=== PATIENT | male | born 1945 | race Two or more races ===

== ENCOUNTER 2017-03-04 11:27 | Inpatient (IN) | payer MEDICARE, OTHER ==
[2017-03-04] VITALS (35 sets, daily range): BP systolic 96–138; BP diastolic 58–90; PULSE 46–60; RESP 11–25; Ht 162.6 cm; Wt 88.0 kg
[~2017-03-04] VITALS: Ht 162.6 cm; Wt 88.0 kg
[2017-03-04] MEDS ORDERED: ISOS30TA5 PO (12:33)
[2017-03-04] MEDS ORDERED: ATOR40TA68 PO (12:33)
[2017-03-04] MEDS ORDERED: FAMO20TA18 PO (12:33)
[2017-03-04] MEDS ORDERED: ASPI81TA3 PO (12:33)
[2017-03-04] MEDS ORDERED: ZOLP5TAB7 PO (12:33)
[2017-03-04] MEDS ORDERED: ATEN100T PO (12:33)
--- NOTE | 2017-03-04 14:35 | CONS ---
Date/Time of Note Date/Time of Note DATE: 03/04/17 TIME: 14:26 Assessment/Plan Assessment/Plan Chief Complaint/Hosp Course Impression: NSTEMI- agree with C possible PCI. Patient/family contact Dr. Burciaga, requested transfer of care to our group. This was d/w Dr. Mancilla as well. Risks/benefits of procedure d/w patient who is aware and agrees to proceed. Will access L radial given absent R radial (? occlusion post cath in 2014). 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 Problems: Consultation Date/Type/Reason Admit Date/Time 03/04/2017 Date of Consultation: Mar 04, 2017 Type of Consultation: Cardiology Reason for Consultation NSTEMI Referring Provider: KIMBERLY MANCILLA Hx of Present Illness Mr. Patino is a 71 y.o. with h/o of HTN, HLD, previous NH s/p PCI to LAD 1997, 2014. Pt follows with Dr. Burciaga in clinic. States he was admitted to [facility] 2 days ago for sudden onset chest pain. Pt states had new onset mod-severe chest pain, mid chest in the am when waking up. felt it dizziness and blurred vision in l eye as well. pt states lasted 5 mins and resolved, but recurred. no n/v, sweating, radiation of pain, palp, dizziness, fainting. no change with activity. denies previous pain, has had pain prior with NH which was different he states. Pt evaluated at [facility], found to have severe elevation in bp, now controlled. pt states bp in general controlled. also noted to have small nstemi 0.1 -> 0.2. Pt now chest pain free. He has been transferred for LHC at [facility]. Otherwise denies pnd, orhtopnea, edema. no palp, dizziness, fainting. no recent illness. Constitutional: no complaints Eyes: no complaints ENT: no complaints Respiratory: no complaints Cardiovascular: chest pain Gastrointestinal: no complaints Genitourinary: no complaints Skin: no complaints Neurologic: dizziness Endocrine: no complaints Psychological: nl mood/affect, no complaints Immunologic: no complaints Past Medical History HTN HLD DM2 Obesity old NH/CAD - PCI LAD 1997, mLAD PCI 2014 lymphoma s/p chemo Past Surgical History Past Surgical Hx: angioplasty Family History Significant Family History: heart disease Social History Alcohol Use: none Smoking Status: Former smoker Drug Use: none Exam/Review of Systems Vital Signs Vitals Vital Signs Date Time Temp Pulse Resp B/P Pulse Ox O2 Delivery O2 Flow Rate FiO2 03/04/17 12:16 98.4 46 14 104/71 95 Room Air Exam Constitutional: alert, obese, oriented Psych: nl mood/affect, no complaints Head: atraumatic, normocephalic Eyes: nl conjunctiva ENMT: nl external ears & nose, nl lips & teeth, nl nasal mucosa & septum Neck: non-tender, supple, No jvd Respiratory: clear to auscultation, normal air movement Cardiovascular: nl pulses, regular rate and rhythm, No S3, No S4, No bruits, No irregular rhythm, No jugular venous distention ( JVD), No systolic murmur Gastrointestinal: non-tender, soft Musculoskeletal: nl extremities to inspection, nl gait and stance Extremities: other (absent R radial pulse, abnl reverse allens. L radial 2+ normal allnes), No edema Neurological: FIELD INVESTIGATOR II-XII intact, nl speech, nl strength Procedures Procedures OSH records reviewed CRISTIAN CARPENTER Mar 04, 2017 14:35
--- NOTE | 2017-03-04 14:35 | CONS ---
Date/Time of Note Date/Time of Note DATE: 03/04/17 TIME: 14:26 Assessment/Plan Assessment/Plan Chief Complaint/Hosp Course Impression: NSTEMI- agree with C possible PCI. Patient/family contact Dr. Burciaga, requested transfer of care to our group. This was d/w Dr. Mancilla as well. Risks/benefits of procedure d/w patient who is aware and agrees to proceed. Will access L radial given absent R radial (? occlusion post cath in 2014). 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 Problems: Consultation Date/Type/Reason Admit Date/Time 03/04/2017 Date of Consultation: Mar 04, 2017 Type of Consultation: Cardiology Reason for Consultation NSTEMI Referring Provider: KIMBERLY MANCILLA Hx of Present Illness Mr. Patino is a 71 y.o. with h/o of HTN, HLD, previous [place] s/p PCI to LAD 1997, 2014. Pt follows with Dr. Burciaga in clinic. States he was admitted to [facility] 2 days ago for sudden onset chest pain. Pt states had new onset mod-severe chest pain, mid chest in the am when waking up. felt it dizziness and blurred vision in l eye as well. pt states lasted 5 mins and resolved, but recurred. no n/v, sweating, radiation of pain, palp, dizziness, fainting. no change with activity. denies previous pain, has had pain prior with NE which was different he states. Pt evaluated at [facility], found to have severe elevation in bp, now controlled. pt states bp in general controlled. also noted to have small nstemi 0.1 -> 0.2. Pt now chest pain free. He has been transferred for LHC at [facility]. Otherwise denies pnd, orhtopnea, edema. no palp, dizziness, fainting. no recent illness. Constitutional: no complaints Eyes: no complaints ENT: no complaints Respiratory: no complaints Cardiovascular: chest pain Gastrointestinal: no complaints Genitourinary: no complaints Skin: no complaints Neurologic: dizziness Endocrine: no complaints Psychological: nl mood/affect, no complaints Immunologic: no complaints Past Medical History HTN HLD DM2 Obesity old NE/CAD - PCI LAD 1997, mLAD PCI 2014 lymphoma s/p chemo Past Surgical History Past Surgical Hx: angioplasty Family History Significant Family History: heart disease Social History Alcohol Use: none Smoking Status: Former smoker Drug Use: none Exam/Review of Systems Vital Signs Vitals Vital Signs Date Time Temp Pulse Resp B/P Pulse Ox O2 Delivery O2 Flow Rate FiO2 03/04/17 12:16 98.4 46 14 104/71 95 Room Air Exam Constitutional: alert, obese, oriented Psych: nl mood/affect, no complaints Head: atraumatic, normocephalic Eyes: nl conjunctiva ENMT: nl external ears & nose, nl lips & teeth, nl nasal mucosa & septum Neck: non-tender, supple, No jvd Respiratory: clear to auscultation, normal air movement Cardiovascular: nl pulses, regular rate and rhythm, No S3, No S4, No bruits, No irregular rhythm, No jugular venous distention ( JVD), No systolic murmur Gastrointestinal: non-tender, soft Musculoskeletal: nl extremities to inspection, nl gait and stance Extremities: other (absent R radial pulse, abnl reverse allens. L radial 2+ normal allnes), No edema Neurological: MOBILITY ENGINEER II-XII intact, nl speech, nl strength Procedures Procedures OSH records reviewed CRISTIAN CARPENTER Mar 04, 2017 14:35
--- NOTE | 2017-03-04 14:35 | CONS ---
Date/Time of Note Date/Time of Note DATE: 03/04/17 TIME: 14:26 Assessment/Plan Assessment/Plan Chief Complaint/Hosp Course Impression: NSTEMI- agree with C possible PCI. Patient/family contact Dr. Burciaga, requested transfer of care to our group. This was d/w Dr. Mancilla as well. Risks/benefits of procedure d/w patient who is aware and agrees to proceed. Will access L radial given absent R radial (? occlusion post cath in 2014). 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 Problems: Consultation Date/Type/Reason Admit Date/Time 03/04/2017 Date of Consultation: Mar 04, 2017 Type of Consultation: Cardiology Reason for Consultation NSTEMI Referring Provider: KIMBERLY MANCILLA Hx of Present Illness Mr. Patino is a 71 y.o. with h/o of HTN, HLD, previous [place] s/p PCI to LAD 1997, 2014. Pt follows with Dr. Burciaga in clinic. States he was admitted to [facility] 2 days ago for sudden onset chest pain. Pt states had new onset mod-severe chest pain, mid chest in the am when waking up. felt it dizziness and blurred vision in l eye as well. pt states lasted 5 mins and resolved, but recurred. no n/v, sweating, radiation of pain, palp, dizziness, fainting. no change with activity. denies previous pain, has had pain prior with [place] which was different he states. Pt evaluated at [facility], found to have severe elevation in bp, now controlled. pt states bp in general controlled. also noted to have small nstemi 0.1 -> 0.2. Pt now chest pain free. He has been transferred for LHC at [facility]. Otherwise denies pnd, orhtopnea, edema. no palp, dizziness, fainting. no recent illness. Constitutional: no complaints Eyes: no complaints ENT: no complaints Respiratory: no complaints Cardiovascular: chest pain Gastrointestinal: no complaints Genitourinary: no complaints Skin: no complaints Neurologic: dizziness Endocrine: no complaints Psychological: nl mood/affect, no complaints Immunologic: no complaints Past Medical History HTN HLD DM2 Obesity old [place]/CAD - PCI LAD 1997, mLAD PCI 2014 lymphoma s/p chemo Past Surgical History Past Surgical Hx: angioplasty Family History Significant Family History: heart disease Social History Alcohol Use: none Smoking Status: Former smoker Drug Use: none Exam/Review of Systems Vital Signs Vitals Vital Signs Date Time Temp Pulse Resp B/P Pulse Ox O2 Delivery O2 Flow Rate FiO2 03/04/17 12:16 98.4 46 14 104/71 95 Room Air Exam Constitutional: alert, obese, oriented Psych: nl mood/affect, no complaints Head: atraumatic, normocephalic Eyes: nl conjunctiva ENMT: nl external ears & nose, nl lips & teeth, nl nasal mucosa & septum Neck: non-tender, supple, No jvd Respiratory: clear to auscultation, normal air movement Cardiovascular: nl pulses, regular rate and rhythm, No S3, No S4, No bruits, No irregular rhythm, No jugular venous distention ( JVD), No systolic murmur Gastrointestinal: non-tender, soft Musculoskeletal: nl extremities to inspection, nl gait and stance Extremities: other (absent R radial pulse, abnl reverse allens. L radial 2+ normal allnes), No edema Neurological: PHYSICIAN IN PRIVATE PRACTICE II-XII intact, nl speech, nl strength Procedures Procedures OSH records reviewed CRISTIAN CARPENTER Mar 04, 2017 14:35
[2017-03-04] MEDS ORDERED: HEPARIN 1000 UNITS/ML 10 ML INJ ONE ×2 (15:05→15:06)
[2017-03-04] MEDS ORDERED: MIDAZOLAM 1 MG/ML 2 ML INJ ONE (15:05)
[2017-03-04] MEDS ORDERED: IODIXANOL LOCM 100 ML BTL ONE (15:05)
[2017-03-04] MEDS ORDERED: LIDOCAINE 1% (MDV) 20 ML INJ ONE (15:05)
[2017-03-04] MEDS ORDERED: FENTAnyl 50 MCG/ML VIAL ONE (15:06)
[2017-03-04] MEDS ORDERED: VERAPAMIL 5 MG INJ ONE (15:06)
[2017-03-04] MEDS ORDERED: SOD CHLORIDE 0.9% 500 ML ONE (15:06)
[2017-03-04] MEDS ORDERED: CLOPIDOGREL 300 MG TAB ONE ×2 (15:51→16:36)
[2017-03-04] MEDS ORDERED: IOHEXOL 350MG/ML 50 ML BTL ONE (15:51)
[2017-03-04] MEDS ORDERED: ONDANSETRON 4 MG INJ ONE (17:11)
[2017-03-04] MEDS ORDERED: EPTIFIBATIDE 10 ML ONE (17:12)
[2017-03-04] MEDS ORDERED: EPTIFIBATIDE 100 ML IV ONE (17:12)
[2017-03-04] MEDS ORDERED: SOD CHLORIDE 0.9% 1,000 ML IV SCH (17:15)
[2017-03-04] MEDS: EPTIFIBATIDE 100 ML IV SCH ×2 (17:27→20:00)
[2017-03-04] MEDS ORDERED: ACETAMINOPHEN 325 MG TAB PO PRN (17:30)
[2017-03-04] MEDS ORDERED: ZOLPIDEM 5 MG TAB PO PRN (17:30)
[2017-03-04] MEDS ORDERED: TICAGRELOR 90 MG TABLET PO ONE (17:30)
[2017-03-04] MEDS ORDERED: morphine 2 MG INJ IV PRN (17:30)
[2017-03-04] MEDS ORDERED: AL HYDROX/MG HYDROX/SIMETH 30 ML CUP PO PRN (17:30)
[2017-03-04] MEDS ORDERED: OXYCODONE/ACETAMINOPHEN (5/325) TAB PO PRN (17:30)
--- NOTE | 2017-03-04 17:30 | SIPON ---
Date/Time of Note Date/Time of Note DATE: 03/04/17 TIME: 17:25 Operative Report Preoperative Diagnosis NSTEMI Postoperative Diagnosis Severe CAD- Occlusion of mid LAD immediately after D1 branch Operation/Procedure Performed 1. Left Heart Catheterization 2. PCI of DYNAMOMETER TUNER of mid to distal LAD with VERO x 3 3. Administration of moderate sedation Findings: LVEDP: 15mmHg Coronary Anatomy: 1) LM - no significant disease 2) LAD- 100% occlusion of mid LAD at previous stent after large D1 artery. distal LAD fills via L-L collaterals 3) LCx- dominant vessel, no significant disease 4) RCA- non dominant vessel, small. no significant disease LV Gram: LVEF 45%, severe hypokinesis of mid to apical anterior wall. Impression: 1) 100% occlusion of previous LAD stent with new WMA on LV gram s/p PCI with VERO x 3 from distal to mid LAD 2) Mildly elevated LV filling pressures Recommendations: 1) aspirin 81 mg daily 2) Load with ticagelor 180mg po x 1 when in ICU then 90mg po bid 3) Integrillin Gtt overnight x 12 hrs given multiple layers of stent and small distal vessel 4) high dose statin 5) po nitrates 6) bb as tolerated Surgeon see signature line resident assistant cna n/a Anesthesia: moderate sedation Estimated blood loss: 50 - 100 ml's Transfusion Required none Specimen none Grafts/Implants none Complications none CRISTIAN CARPENTER Mar 04, 2017 17:30
--- NOTE | 2017-03-04 17:30 | SIPON ---
Date/Time of Note Date/Time of Note DATE: 03/04/17 TIME: 17:25 Operative Report Preoperative Diagnosis NSTEMI Postoperative Diagnosis Severe CAD- Occlusion of mid LAD immediately after D1 branch Operation/Procedure Performed 1. Left Heart Catheterization 2. PCI of MISSION PLANNER of mid to distal LAD with VERO x 3 3. Administration of moderate sedation Findings: LVEDP: 15mmHg Coronary Anatomy: 1) LM - no significant disease 2) LAD- 100% occlusion of mid LAD at previous stent after large D1 artery. distal LAD fills via L-L collaterals 3) LCx- dominant vessel, no significant disease 4) RCA- non dominant vessel, small. no significant disease LV Gram: LVEF 45%, severe hypokinesis of mid to apical anterior wall. Impression: 1) 100% occlusion of previous LAD stent with new WMA on LV gram s/p PCI with VERO x 3 from distal to mid LAD 2) Mildly elevated LV filling pressures Recommendations: 1) aspirin 81 mg daily 2) Load with ticagelor 180mg po x 1 when in ICU then 90mg po bid 3) Integrillin Gtt overnight x 12 hrs given multiple layers of stent and small distal vessel 4) high dose statin 5) po nitrates 6) bb as tolerated Surgeon see signature line front end assistant n/a Anesthesia: moderate sedation Estimated blood loss: 50 - 100 ml's Transfusion Required none Specimen none Grafts/Implants none Complications none CRISTIAN CARPENTER Mar 04, 2017 17:30
--- NOTE | 2017-03-04 17:30 | SIPON ---
Date/Time of Note Date/Time of Note DATE: 03/04/17 TIME: 17:25 Operative Report Preoperative Diagnosis NSTEMI Postoperative Diagnosis Severe CAD- Occlusion of mid LAD immediately after D1 branch Operation/Procedure Performed 1. Left Heart Catheterization 2. PCI of DRILL DOCTOR of mid to distal LAD with VERO x 3 3. Administration of moderate sedation Findings: LVEDP: 15mmHg Coronary Anatomy: 1) LM - no significant disease 2) LAD- 100% occlusion of mid LAD at previous stent after large D1 artery. distal LAD fills via L-L collaterals 3) LCx- dominant vessel, no significant disease 4) RCA- non dominant vessel, small. no significant disease LV Gram: LVEF 45%, severe hypokinesis of mid to apical anterior wall. Impression: 1) 100% occlusion of previous LAD stent with new WMA on LV gram s/p PCI with VERO x 3 from distal to mid LAD 2) Mildly elevated LV filling pressures Recommendations: 1) aspirin 81 mg daily 2) Load with ticagelor 180mg po x 1 when in ICU then 90mg po bid 3) Integrillin Gtt overnight x 12 hrs given multiple layers of stent and small distal vessel 4) high dose statin 5) po nitrates 6) bb as tolerated Surgeon see signature line assistant professor of theater n/a Anesthesia: moderate sedation Estimated blood loss: 50 - 100 ml's Transfusion Required none Specimen none Grafts/Implants none Complications none CRISTIAN CARPENTER Mar 04, 2017 17:30
[2017-03-04] MEDS ORDERED: ATORVASTATIN 80 MG TAB PO SCH (21:00)
[2017-03-04] MEDS: DOCUSATE SODIUM 100 MG CAP PO SCH (21:07)
[2017-03-04] MEDS: ONDANSETRON 4 MG INJ IV PRN (21:12)
[2017-03-04] MEDS: ISOSORBIDE DINITRATE 20 MG TAB PO SCH ×2 (21:13→21:20)
[2017-03-05] VITALS (25 sets, daily range): BP systolic 95–127; BP diastolic 44–87; PULSE 51–81; RESP 9–22
--- NOTE | 2017-03-05 06:35 | HP ---
Date/Time of Note Date/Time of Note DATE: 03/05/17 TIME: 06:29 Assessment/Plan VTE Prophylaxis VTE Prophylaxis Intervention: SCD's Lines/Catheters IV [facility]ter [facility] Peripheral IV Urinary Cath still in place: No Assessment/Plan Assessment/Plan ASSESSMENT 71-year-old male with a history of CAD status post PCI with stent, hypertension , dyslipidemia who was transferred from [facility] for NSTEMI, and now status post left heart cath with placement of stent PLAN Continue ICU monitoring Continue aspirin, Brilinta, nitro and statin. Patient is bradycardic and as such no [id number] Follow-up cardiology recs HPI/ROS Admit Date/Time Admit Date/Time 03/04/2017 Hx of Present Illness This is a 71-year-old male with a history of CAD status post PCI with stent, hypertension, dyslipidemia who was transferred from [facility] for NSTEMI. Patient has been having chest pain for the past few days. At [facility] his second troponin was slightly high around 0.2. Patient is now status post left heart cath with placement of stent. Currently is not complaining of chest pain or shortness of breath. ROS Eyes: no complaints ENT: no complaints Respiratory: no complaints Cardiovascular: chest pain Gastrointestinal: no complaints Genitourinary: no complaints Skin: no complaints Neurologic: dizziness Psychological: nl mood/affect, no complaints Immunologic: no complaints PMH/Family/Social Past Surgical History Past Surgical Hx: angioplasty Social History Alcohol Use: none Smoking Status: Former smoker Drug Use: none Exam/Review of Systems Vital Signs Vitals Vital Signs Date Time Temp Pulse Resp B/P Pulse Ox O2 Delivery O2 Flow Rate FiO2 03/05/17 05:59 58 03/05/17 05:00 13 102/57 99 Nasal Cannula 2.0 03/05/17 04:00 98.1 Intake and Output 03/04/17 03/04/17 03/05/17 15:00 23:00 07:00 Intake Total 635.84 ml 281.68 ml Output Total 350 ml 400 ml Balance 285.84 ml -118.32 ml Exam Constitutional: alert, oriented, well developed Head: atraumatic, normocephalic Eyes: EOMI, PERRL Respiratory: clear to auscultation, normal air movement Cardiovascular: other (Bradycardic with regular rhythm) Gastrointestinal: non-tender, soft Extremities: normal pulses Labs Result Diagram: 03/05/1743603/05/17436 Medications Medications Current Medications Miscellaneous Information (* Miscellaneous Pharmacy Order) Hold all Metformin ... ONCE XX ; Start 03/04/17 at 17:30; Stop 03/06/17 at 17:29 Aspirin (Halfprin) 81 mg DAILY PO ; Start 03/05/17 at 09:00 Ticagrelor (Brilinta) 90 mg BID PO ; Start 03/05/17 at 09:00 Isosorbide Dinitrate (Isordil) 10 mg TID PO Last administered on 03/04/17 21: 20; Admin Dose 10 MG; Start 03/04/17 at 21:00 Acetaminophen (Tylenol Tab) 650 mg Q4H PRN PO NON-CARDIAC PAIN LEVEL 1-3; Start 03/04/17 at 17:30 Oxycodone/ Acetaminophen (Percocet (5/ 325)) 1 tab Q4H PRN PO REPORTED NON- CARDIAC PAIN 4-7; Start 03/04/17 at 17:30 Morphine Sulfate (morphine) 1 mg Q1H PRN IV PAIN NOT RELIEVED BY OTHERS; Start 03/04/17 at 17:30 Al Hydrox/Mg Hydrox/Simethicone (Mag-Al Plus) 30 ml Q4H PRN PO GASTROINTESTINAL UPSET; Start 03/04/17 at 17:30 Ondansetron HCl (Zofran Inj) 4 mg Q4H PRN IV NAUSEA AND/OR VOMITING Last administered on 03/04/17 21:12; Admin Dose 4 MG; Start 03/04/17 at 17:30 Docusate Sodium (Colace) 100 mg BID PO Last administered on 03/04/17 21:07; Admin Dose 100 MG; Start 03/04/17 at 21:00 Atorvastatin Calcium (Lipitor) 80 mg DAILY@21 PO Last administered on 21:08; Admin Dose 80 MG; Start 03/04/17 at 21:00 HEMANT BARROSO MD Mar 05, 2017 06:35 HEMANT BARROSO MD Mar 05, 2017 06:35
[2017-03-05] MEDS: DOCUSATE SODIUM 100 MG CAP PO SCH (08:09)
[2017-03-05] MEDS: ISOSORBIDE DINITRATE 20 MG TAB PO SCH (08:09)
[2017-03-05] MEDS ORDERED: TICAGRELOR 90 MG TABLET PO SCH (09:00)
[2017-03-05] MEDS ORDERED: ASPIRIN (EC) 81 MG TAB PO SCH (09:00)
--- NOTE | 2017-03-05 10:17 | CONS ---
Date/Time of Note Date/Time of Note DATE: 03/05/17 TIME: 10:08 Assessment/Plan Assessment/Plan Chief Complaint/Hosp Course Impression: NSTEMI- s/p LHC had total occlusion of mid LAD stent after D1. Appears on LV gram to have new wma with hypokinesis of mid to apical anterior wall. Decision made to proceed with PCI. now s/p PCI of mid to distal LAD with VERO x 3 overlapping and covering previous placed stents. Pt did well overnight. - cont asa 81mg daily - cont ticagelor 90mg po bid - cont statin - ok to cont bb, switch to metop xl 25mg daily given cardiomyopathy. hold for HR < 50 - d/c nitrate given headaches HTN- controlled - d.c atenolol - start metop xl 25mg daily, hold for hr < 50 HLD- con tstatin Obesity- - cardiac rehab, diet/exercise post discharge. Problems: Consultation Date/Type/Reason Admit Date/Time Mar 04, 2017 at 17:24 Initial Consult Date 03/04/17 Type of Consultation: Cardiology Referring Provider: KIMBERLY MANCILLA 24 HR Interval Summary Free Text/Dictation no acute events overnight. states has mild headache, after taking nitrate. no change in vision, n/v, numbness/weakness. pt ambulating in room, no cp/sob. had bm, no blood in stool. no events on tele Detailed Summary Respiratory: no complaints Cardiovascular: no complaints Gastrointestinal: no complaints Exam/Review of Systems Vital Signs Vitals Vital Signs Date Time Temp Pulse Resp B/P Pulse Ox O2 Delivery O2 Flow Rate FiO2 03/05/17 08:00 Nasal Cannula 2.0 03/05/17 08:00 55 03/05/17 08:00 14 105/71 97 03/05/17 07:00 98.2 Intake and Output 03/04/17 03/04/17 03/05/17 15:00 23:00 07:00 Intake Total 635.84 ml 281.68 ml Output Total 350 ml 700 ml Balance 285.84 ml -418.32 ml Exam Constitutional: alert, oriented Psych: nl mood/affect, no complaints Head: normocephalic Eyes: EOMI, nl conjunctiva, nl lids ENMT: nl external ears & nose Neck: non-tender, supple, No jvd Respiratory: clear to auscultation, normal air movement Cardiovascular: nl pulses, regular rate and rhythm, No S3, No S4, No diastolic murmur, No edema, No irregular rhythm, No systolic murmur Gastrointestinal: non-tender, soft, No distended Musculoskeletal: other (2+ radial at L hand cath site, + small amount of bruising, hematoma. normal sensation, ROM of L hand.) Extremities: normal pulses Neurological: LOSS CONTROL ENGINEER II-XII intact, nl mental status, nl speech, nl strength Skin: nl turgor Results Result Diagram: 03/05/1743603/05/17436 Results 24 hrs Laboratory Tests Test 03/05/17 04:37 White Blood Count 6.3 Red Blood Count 4.76 Hemoglobin 14.6 Hematocrit 42.8 Mean Corpuscular Volume 89.9 Mean Corpuscular Hemoglobin 30.7 Mean Corpuscular Hemoglobin Concent 34.1 Red Cell Distribution Width 12.8 Platelet Count 122 L Mean Platelet Volume 10.2 Neutrophils % 78.8 H Lymphocytes % 11.2 L Monocytes % 8.8 Eosinophils % 0.3 Basophils % 0.3 Nucleated Red Blood Cells % 0.0 Neutrophils # 4.9 Lymphocytes # 0.7 L Monocytes # 0.6 Eosinophils # 0.0 Basophils # 0.0 Nucleated Red Blood Cells # 0.0 Prothrombin Time 13.0 Prothrombin Time Ratio 1.0 INR International Normalized Ratio 0.98 Sodium Level 140 Potassium Level 4.2 Chloride Level 107 Carbon Dioxide Level 26 Anion Gap 11 Blood Urea Nitrogen 12 Creatinine 0.76 Glucose Level 83 Calcium Level 8.8 Triglycerides Level 118 Cholesterol Level 167 LDL Cholesterol, Calculated 110 HDL Cholesterol 33 Cholesterol/HDL Ratio 5.0 Medications Medications Current Medications Miscellaneous Information (* Miscellaneous Pharmacy Order) Hold all Metformin ... ONCE XX ; Start 03/04/17 at 17:30; Stop 03/06/17 at 17:29 Aspirin (Halfprin) 81 mg DAILY PO Last administered on 03/05/17 08:08; Admin Dose 81 MG; Start 03/05/17 at 09:00 Ticagrelor (Brilinta) 90 mg BID PO Last administered on 03/05/17 08:11; Admin Dose 90 MG; Start 03/05/17 at 09:00 Isosorbide Dinitrate (Isordil) 10 mg TID PO Last administered on 03/05/17 08: 09; Admin Dose 10 MG; Start 03/04/17 at 21:00 Acetaminophen (Tylenol Tab) 650 mg Q4H PRN PO NON-CARDIAC PAIN LEVEL 1-3; Start 03/04/17 at 17:30 Oxycodone/ Acetaminophen (Percocet (5/ 325)) 1 tab Q4H PRN PO REPORTED NON- CARDIAC PAIN 4-7; Start 03/04/17 at 17:30 Morphine Sulfate (morphine) 1 mg Q1H PRN IV PAIN NOT RELIEVED BY OTHERS; Start 03/04/17 at 17:30 Al Hydrox/Mg Hydrox/Simethicone (Mag-Al Plus) 30 ml Q4H PRN PO GASTROINTESTINAL UPSET; Start 03/04/17 at 17:30 Ondansetron HCl (Zofran Inj) 4 mg Q4H PRN IV NAUSEA AND/OR VOMITING Last administered on 03/04/17 21:12; Admin Dose 4 MG; Start 03/04/17 at 17:30 Docusate Sodium (Colace) 100 mg BID PO Last administered on 03/05/17 08:09; Admin Dose 100 MG; Start 03/04/17 at 21:00 Atorvastatin Calcium (Lipitor) 80 mg DAILY@21 PO Last administered on 21:08; Admin Dose 80 MG; Start 03/04/17 at 21:00 Procedures Procedures tele reviewed: no events, nsr with meenu 40s-60s CRISTIAN CARPENTER Mar 05, 2017 10:17
--- NOTE | 2017-03-05 10:24 | RADRPT ---
Vent Rate: 54 bpm RR Interval: 0 msec MD Interval: 184 msec QRS Duration: 98 msec QT Interval: 442 msec QTC Interval: 419 msec P-R-T [place]: 41 - -23 - 14 degrees Sinus bradycardia Cannot rule out Anterior infarct , age undetermined Abnormal ECG Electronically Signed By: Rolan Slaughter [id number]
--- NOTE | 2017-03-05 10:24 | RADRPT ---
Vent Rate: 54 bpm RR Interval: 0 msec TN Interval: 184 msec QRS Duration: 98 msec QT Interval: 442 msec QTC Interval: 419 msec P-R-T [place]: 41 - -23 - 14 degrees Sinus bradycardia Cannot rule out Anterior infarct , age undetermined Abnormal ECG Electronically Signed By: Rolan Slaughter [id number]
--- NOTE | 2017-03-05 10:24 | RADRPT ---
Vent Rate: 54 bpm RR Interval: 0 msec [place] Interval: 184 msec QRS Duration: 98 msec QT Interval: 442 msec QTC Interval: 419 msec P-R-T [place]: 41 - -23 - 14 degrees Sinus bradycardia Cannot rule out Anterior infarct , age undetermined Abnormal ECG Electronically Signed By: Rolan Slaughter [id number]
--- NOTE | 2017-03-05 10:25 | RADRPT ---
Vent Rate: 61 bpm RR Interval: 0 msec [place] Interval: 168 msec QRS Duration: 94 msec QT Interval: 418 msec QTC Interval: 420 msec P-R-T [place]: 63 - -15 - 47 degrees Normal sinus rhythm Septal infarct , age undetermined Abnormal ECG Electronically Signed By: Rolan Slaughter [id number]
--- NOTE | 2017-03-05 10:25 | RADRPT ---
Vent Rate: 61 bpm RR Interval: 0 msec [place] Interval: 168 msec QRS Duration: 94 msec QT Interval: 418 msec QTC Interval: 420 msec P-R-T [place]: 63 - -15 - 47 degrees Normal sinus rhythm Septal infarct , age undetermined Abnormal ECG Electronically Signed By: Rolan Slaughter [id number]
--- NOTE | 2017-03-05 10:25 | RADRPT ---
Vent Rate: 61 bpm RR Interval: 0 msec [place] Interval: 168 msec QRS Duration: 94 msec QT Interval: 418 msec QTC Interval: 420 msec P-R-T [place]: 63 - -15 - 47 degrees Normal sinus rhythm Septal infarct , age undetermined Abnormal ECG Electronically Signed By: Rolan Slaughter [id number]
[2017-03-05] MEDS ORDERED: METOPROLOL (XL) 25 MG TAB PO SCH (10:30)
[2017-03-05] MEDS ORDERED: METO-335 PO (11:12)
[2017-03-05] MEDS ORDERED: TICA90TA PO (11:12)
[2017-03-05] MEDS ORDERED: ATOR80TA75 PO (11:12)
[2017-03-05] MEDS ORDERED: ASPI-664 PO (11:12)
[2017-03-05] MEDS: ONDANSETRON 4 MG INJ IV PRN (11:14)
--- NOTE | 2017-03-05 11:20 | PDOCDIS ---
Discharge Instructions DIAGNOSIS Discharge Diagnosis 1. Non-ST elevated myocardial infarction. Noted with total occlusion of mid LAD 2. Hypertension 3. Dyspnea 4. Obesity 5. Coronary artery disease CONDITION Patient Condition: Stable HOME CARE INSTRUCTIONS: Diet Instructions: Low Fat /Cholesterol FOLLOW UP/APPOINTMENTS Follow-up Plan 1. Follow up with Dr. Rolan Slaughter in one week SANTO HUFFMAN Mar 05, 2017 11:20
--- NOTE | 2017-03-05 13:24 | OPR ---
DATE OF OPERATION: 03/04/2017 PROCEDURE PERFORMED: 1. Left heart catheterization. 2. Percutaneous coronary intervention of DECORATING INSTRUCTOR of the mid left anterior descending. 3. Administration of moderate sedation. PREOPERATIVE DIAGNOSES: 1. Non-ST elevation myocardial infarction. 2. Coronary artery disease. POSTOPERATIVE DIAGNOSES: 1. Severe 1-vessel coronary artery disease. 2. Current total occlusion of the mid left anterior descending. MAPPING PILOT: Rolan Slaughter MD. PRIMARY BEE KEEPER: Suman Burciaga MD. PRIMARY CARE PHYSICIAN: Hector Meek MD. HISTORY: Mr. Patino is a pleasant 71-year-old man with a past medical history of coronary artery disease and previous [place], status post PCI in 1987, as well as 2014, to the LAD. The patient presente d to [facility] 2 days ago with sudden onset chest pain and elevated blood pressure. The patient noted to have a non-ST elevation [place] with an elevated troponin at 0.2. The patient was ther efore transferred to [facility] for left heart catheterization. Discussion was he ld between myself and the patient prior to cath. Explained risks and benefits of procedure. Patien t is agreeable to proceed. All questions were answered. PROCEDURE DESCRIPTION: The patient was brought to catheterization lab in stable condition. Left wr ist was prepped and draped in usual sterile fashion and anesthetized with 2% lidocaine solution. Un john ultrasonic guidance, access was obtained to the left radial artery and a 6-Belgian Terumo Slender sheath was placed without difficulty. Cineangiograms were then obtained using a TIG 4.0, 6-Belgian diagnostic catheter to engage the right coronary artery. Cineangiograms obtained in standard views. The catheter was then exchanged for a FL 3.5, 5-Belgian diagnostic catheter, was used to engage the left coronary and cineangiograms obtain ed. The FL catheter was withdrawn and exchanged for a 6-Belgian pigtail catheter, was advanced to th e left ventricle and pressures were obtained. Left ventriculography was then performed as well. At this point, the discussion was held between myself and patient's primary senior application programmer, Dr. Mily gregory as well as with patient. Given non-ST elevation myocardial infarction, new wall motion abnormal ity on LV gram, decision was made to attempt PCI of the DECORATING INSTRUCTOR of the mid LAD. It was unclear was how chronic this was versus acute/subacute. PCI DESCRIPTION: The patient loaded with aspirin as well as Plavix prior to PCI. Additional IV hep isa was given and ACT was checked and confirmed to be in therapeutic range. An XB 3.5 6-Belgian gabriel ding catheter was used to engage the left coronary. A 0.014 inch Runthrough coronary guidewire was advanced to the mid LAD at the area of occlusion. A 1.2 x 6 mm balloon was advanced over the Runthr ough wire for added support. The Runthrough wire was able to cross the proximal cap and was having difficulty traversing the mid LAD. A 300 cm 0.014 inch Fielder XT coronary wire was then advanced t o the mid LAD and was able to cross the proximal cap and advance to the distal LAD. Runthrough wire was removed as well as with the 1.2 balloon. A 130 cm Corsair microcatheter was then advanced over the Fielder XT wire to the distal LAD and distal injection was performed confirming position in the true lumen. The was Corsair was then removed and the 1.2 x 6 mm balloon was advanced to the mid LA D and serial inflations were performed from distal to mid LAD. Entry of flow was noted. The balloo n was removed and exchanged for a 2.0 x 12 mm balloon and angioplasty was performed from distal to m id LAD. Multiple lesions were identified and at this point decision was made to proceed with PCI. A 2.25 x 32 mm Synergy drug-eluting stent was advanced to the distal LAD and deployed. A 2.75 x 32 mm Synergy drug-eluting stent was then advanced to the distal/mid LAD and deployed proximal to the f irst stent in overlapping fashion. Stent balloon was removed. Overlap was post-dilated with the st ent balloon and the stent balloon was removed. A 3.0 x 12 mm Synergy drug-eluting stent was then ad vanced to the mid/proximal LAD and deployed at high pressure. Again, the overlap of the second and most proximal stent was post-dilated with stent balloon. The stent balloon was then removed. A 2.5 x 20 mm noncompliant balloon was then advanced to the distal LAD stent and used for post-dilation. A 3.25 x 20 mm noncompliant balloon was then used to post-dilate the second LAD stent as well as th e overlaps as well as the more proximal portion of the third LAD stent. Final angiograms were obtai talat showing good stent expansion apposition. There was brisk flow noted in the LAD stent, but remai talat MATHEW II/III type flow likely due to size mismatch between the stent and distal artery. Therefor e, Integrilin drip was started at this point. The patient denied any chest pain or shortness of kim ath. All wires and catheters removed. Intracoronary nitroglycerin was given. The patient did noti ce nausea and vomiting with the nitroglycerin. After was stopped patient denied any chest no n or further nausea. The patient given Zofran IV. All catheters and wires were removed. Hemostasi s was obtained with a TR band to the left wrist. ESTIMATED BLOOD LOSS: 100 mL. COMPLICATIONS: There were no complications. SPECIMENS OBTAINED: None. FINDINGS: HEMODYNAMICS. LVEDP is 15 mmHg. LV gram. EF 45% with severe hypokinesis of the mid to apical anterior wall. CORONARY ANATOMY: 1. Left main. Large vessel with mild disease, 10%. 2. Left anterior descending artery. This is a large sized vessel proximally. There is mild diseas e in the distal portion of the proximal LAD, 30% to 40%. There is a septal 1 artery, which is follo wed by a small size diagonal 1 artery. After this diagonal 1 artery, the LAD is completely occluded with MATHEW 0 flow. This appears to be at the proximal edge of two overlapping stents. The distal L AD fills weakly via left to left collaterals from the apical portion. 3. Left circumflex artery. This is a dominant artery. It is large in size. The proximal circumfl ex has mild diffuse disease, 30%. The mid to distal circumflex is without disease. There is an ave rage size left PDA artery, which is without disease. The OM2 branch is a large sized branch and has mild disease, 30% proximal portion, as well as 30% in the mid portion. There is a small superior b ranch with a proximal 60% lesion. The inferior branch is large and tortuous without significant dis ease. 4. Right coronary artery. This is a small nondominant branch. No significant disease. 5. Ramus intermedius branch. Average size long with a proximal 30% to 40% stenosis. PERCUTANEOUS CORONARY INTERVENTION LESION DESCRIPTION: 1. Mid LAD DECORATING INSTRUCTOR status post PCI with drug-eluting stent x3. 2. Preprocedure stenosis 100%, postprocedure stenosis is 0%. 3. MATHEW 0 flow pre, MATHEW II to III flow post. CONCLUSIONS: 1. Single vessel coronary artery disease with DECORATING INSTRUCTOR of the mid LAD, status post PCI with overall dexter ing drug-eluting stents x3. 2. Moderate decreased LV systolic function with new anterior wall motion abnormality. 3. Mildly elevated left ventricular filling pressures. RECOMMENDATIONS: 1. Aspirin 81 mg daily. 2. Given patient with multiple overlapping stents would switch him to Brilinta 90 mg p.o. b.i.d. 3. Integrilin drip overnight. 4. Continue statin. 5. Continue beta-raymundo as tolerated. 6. Continue nitrate if patient can tolerate. 7. Referral to cardiac rehab after discharge. Dictated By: ROLAN FRIAS/PRETTY Conf#: [id number] DID#: [id number]
--- NOTE | 2017-03-05 13:24 | OPR ---
DATE OF OPERATION: 03/04/2017 PROCEDURE PERFORMED: 1. Left heart catheterization. 2. Percutaneous coronary intervention of BRICK UNLOADER TENDER of the mid left anterior descending. 3. Administration of moderate sedation. PREOPERATIVE DIAGNOSES: 1. Non-ST elevation myocardial infarction. 2. Coronary artery disease. POSTOPERATIVE DIAGNOSES: 1. Severe 1-vessel coronary artery disease. 2. Current total occlusion of the mid left anterior descending. OPERATING ROOM SURGICAL TECHNICIAN: Rolan Slaughter MD. PRIMARY PIZZA BAKER: Suman Burciaga MD. PRIMARY CARE PHYSICIAN: Hector Meek MD. HISTORY: Mr. Patino is a pleasant 71-year-old man with a past medical history of coronary artery disease and previous [place], status post PCI in 1987, as well as 2014, to the LAD. The patient presente d to [facility] 2 days ago with sudden onset chest pain and elevated blood pressure. The patient noted to have a non-ST elevation [place] with an elevated troponin at 0.2. The patient was ther efore transferred to [facility] for left heart catheterization. Discussion was he ld between myself and the patient prior to cath. Explained risks and benefits of procedure. Patien t is agreeable to proceed. All questions were answered. PROCEDURE DESCRIPTION: The patient was brought to catheterization lab in stable condition. Left wr ist was prepped and draped in usual sterile fashion and anesthetized with 2% lidocaine solution. Un john ultrasonic guidance, access was obtained to the left radial artery and a 6-Cypriot Terumo Slender sheath was placed without difficulty. Cineangiograms were then obtained using a TIG 4.0, 6-Cypriot diagnostic catheter to engage the right coronary artery. Cineangiograms obtained in standard views. The catheter was then exchanged for a FL 3.5, 5-Cypriot diagnostic catheter, was used to engage the left coronary and cineangiograms obtain ed. The FL catheter was withdrawn and exchanged for a 6-Cypriot pigtail catheter, was advanced to th e left ventricle and pressures were obtained. Left ventriculography was then performed as well. At this point, the discussion was held between myself and patient's primary night club manager, Dr. Mily gregory as well as with patient. Given non-ST elevation myocardial infarction, new wall motion abnormal ity on LV gram, decision was made to attempt PCI of the BRICK UNLOADER TENDER of the mid LAD. It was unclear was how chronic this was versus acute/subacute. PCI DESCRIPTION: The patient loaded with aspirin as well as Plavix prior to PCI. Additional IV hep isa was given and ACT was checked and confirmed to be in therapeutic range. An XB 3.5 6-Cypriot gabriel ding catheter was used to engage the left coronary. A 0.014 inch Runthrough coronary guidewire was advanced to the mid LAD at the area of occlusion. A 1.2 x 6 mm balloon was advanced over the Runthr ough wire for added support. The Runthrough wire was able to cross the proximal cap and was having difficulty traversing the mid LAD. A 300 cm 0.014 inch Fielder XT coronary wire was then advanced t o the mid LAD and was able to cross the proximal cap and advance to the distal LAD. Runthrough wire was removed as well as with the 1.2 balloon. A 130 cm Corsair microcatheter was then advanced over the Fielder XT wire to the distal LAD and distal injection was performed confirming position in the true lumen. The was Corsair was then removed and the 1.2 x 6 mm balloon was advanced to the mid LA D and serial inflations were performed from distal to mid LAD. Entry of flow was noted. The balloo n was removed and exchanged for a 2.0 x 12 mm balloon and angioplasty was performed from distal to m id LAD. Multiple lesions were identified and at this point decision was made to proceed with PCI. A 2.25 x 32 mm Synergy drug-eluting stent was advanced to the distal LAD and deployed. A 2.75 x 32 mm Synergy drug-eluting stent was then advanced to the distal/mid LAD and deployed proximal to the f irst stent in overlapping fashion. Stent balloon was removed. Overlap was post-dilated with the st ent balloon and the stent balloon was removed. A 3.0 x 12 mm Synergy drug-eluting stent was then ad vanced to the mid/proximal LAD and deployed at high pressure. Again, the overlap of the second and most proximal stent was post-dilated with stent balloon. The stent balloon was then removed. A 2.5 x 20 mm noncompliant balloon was then advanced to the distal LAD stent and used for post-dilation. A 3.25 x 20 mm noncompliant balloon was then used to post-dilate the second LAD stent as well as th e overlaps as well as the more proximal portion of the third LAD stent. Final angiograms were obtai talat showing good stent expansion apposition. There was brisk flow noted in the LAD stent, but remai talat MATHEW II/III type flow likely due to size mismatch between the stent and distal artery. Therefor e, Integrilin drip was started at this point. The patient denied any chest pain or shortness of kim ath. All wires and catheters removed. Intracoronary nitroglycerin was given. The patient did noti ce nausea and vomiting with the nitroglycerin. After was stopped patient denied any chest no n or further nausea. The patient given Zofran IV. All catheters and wires were removed. Hemostasi s was obtained with a TR band to the left wrist. ESTIMATED BLOOD LOSS: 100 mL. COMPLICATIONS: There were no complications. SPECIMENS OBTAINED: None. FINDINGS: HEMODYNAMICS. LVEDP is 15 mmHg. LV gram. EF 45% with severe hypokinesis of the mid to apical anterior wall. CORONARY ANATOMY: 1. Left main. Large vessel with mild disease, 10%. 2. Left anterior descending artery. This is a large sized vessel proximally. There is mild diseas e in the distal portion of the proximal LAD, 30% to 40%. There is a septal 1 artery, which is follo wed by a small size diagonal 1 artery. After this diagonal 1 artery, the LAD is completely occluded with MATHEW 0 flow. This appears to be at the proximal edge of two overlapping stents. The distal L AD fills weakly via left to left collaterals from the apical portion. 3. Left circumflex artery. This is a dominant artery. It is large in size. The proximal circumfl ex has mild diffuse disease, 30%. The mid to distal circumflex is without disease. There is an ave rage size left PDA artery, which is without disease. The OM2 branch is a large sized branch and has mild disease, 30% proximal portion, as well as 30% in the mid portion. There is a small superior b ranch with a proximal 60% lesion. The inferior branch is large and tortuous without significant dis ease. 4. Right coronary artery. This is a small nondominant branch. No significant disease. 5. Ramus intermedius branch. Average size long with a proximal 30% to 40% stenosis. PERCUTANEOUS CORONARY INTERVENTION LESION DESCRIPTION: 1. Mid LAD BRICK UNLOADER TENDER status post PCI with drug-eluting stent x3. 2. Preprocedure stenosis 100%, postprocedure stenosis is 0%. 3. MATHEW 0 flow pre, MATHEW II to III flow post. CONCLUSIONS: 1. Single vessel coronary artery disease with BRICK UNLOADER TENDER of the mid LAD, status post PCI with overall dexter ing drug-eluting stents x3. 2. Moderate decreased LV systolic function with new anterior wall motion abnormality. 3. Mildly elevated left ventricular filling pressures. RECOMMENDATIONS: 1. Aspirin 81 mg daily. 2. Given patient with multiple overlapping stents would switch him to Brilinta 90 mg p.o. b.i.d. 3. Integrilin drip overnight. 4. Continue statin. 5. Continue beta-raymundo as tolerated. 6. Continue nitrate if patient can tolerate. 7. Referral to cardiac rehab after discharge. Dictated By: ROLAN FRIAS/PRETTY Conf#: [id number] DID#: [id number]
--- NOTE | 2017-03-05 13:24 | OPR ---
DATE OF OPERATION: 03/04/2017 PROCEDURE PERFORMED: 1. Left heart catheterization. 2. Percutaneous coronary intervention of MILK PASTEURIZER of the mid left anterior descending. 3. Administration of moderate sedation. PREOPERATIVE DIAGNOSES: 1. Non-ST elevation myocardial infarction. 2. Coronary artery disease. POSTOPERATIVE DIAGNOSES: 1. Severe 1-vessel coronary artery disease. 2. Current total occlusion of the mid left anterior descending. INDUSTRIAL REGISTERED NURSE: Rolan Slaughter MD. PRIMARY CAMPUS AMBASSADOR: Suman Burciaga MD. PRIMARY CARE PHYSICIAN: Hector Meek MD. HISTORY: Mr. Patino is a pleasant 71-year-old man with a past medical history of coronary artery disease and previous [place], status post PCI in 1987, as well as 2014, to the LAD. The patient presente d to [facility] 2 days ago with sudden onset chest pain and elevated blood pressure. The patient noted to have a non-ST elevation [place] with an elevated troponin at 0.2. The patient was ther efore transferred to [facility] for left heart catheterization. Discussion was he ld between myself and the patient prior to cath. Explained risks and benefits of procedure. Patien t is agreeable to proceed. All questions were answered. PROCEDURE DESCRIPTION: The patient was brought to catheterization lab in stable condition. Left wr ist was prepped and draped in usual sterile fashion and anesthetized with 2% lidocaine solution. Un john ultrasonic guidance, access was obtained to the left radial artery and a 6-Tuvaluan Terumo Slender sheath was placed without difficulty. Cineangiograms were then obtained using a TIG 4.0, 6-Tuvaluan diagnostic catheter to engage the right coronary artery. Cineangiograms obtained in standard views. The catheter was then exchanged for a FL 3.5, 5-Tuvaluan diagnostic catheter, was used to engage the left coronary and cineangiograms obtain ed. The FL catheter was withdrawn and exchanged for a 6-Tuvaluan pigtail catheter, was advanced to th e left ventricle and pressures were obtained. Left ventriculography was then performed as well. At this point, the discussion was held between myself and patient's primary new home sales consultant, Dr. Mily gregory as well as with patient. Given non-ST elevation myocardial infarction, new wall motion abnormal ity on LV gram, decision was made to attempt PCI of the MILK PASTEURIZER of the mid LAD. It was unclear was how chronic this was versus acute/subacute. PCI DESCRIPTION: The patient loaded with aspirin as well as Plavix prior to PCI. Additional IV hep isa was given and ACT was checked and confirmed to be in therapeutic range. An XB 3.5 6-Tuvaluan gabriel ding catheter was used to engage the left coronary. A 0.014 inch Runthrough coronary guidewire was advanced to the mid LAD at the area of occlusion. A 1.2 x 6 mm balloon was advanced over the Runthr ough wire for added support. The Runthrough wire was able to cross the proximal cap and was having difficulty traversing the mid LAD. A 300 cm 0.014 inch Fielder XT coronary wire was then advanced t o the mid LAD and was able to cross the proximal cap and advance to the distal LAD. Runthrough wire was removed as well as with the 1.2 balloon. A 130 cm Corsair microcatheter was then advanced over the Fielder XT wire to the distal LAD and distal injection was performed confirming position in the true lumen. The was Corsair was then removed and the 1.2 x 6 mm balloon was advanced to the mid LA D and serial inflations were performed from distal to mid LAD. Entry of flow was noted. The balloo n was removed and exchanged for a 2.0 x 12 mm balloon and angioplasty was performed from distal to m id LAD. Multiple lesions were identified and at this point decision was made to proceed with PCI. A 2.25 x 32 mm Synergy drug-eluting stent was advanced to the distal LAD and deployed. A 2.75 x 32 mm Synergy drug-eluting stent was then advanced to the distal/mid LAD and deployed proximal to the f irst stent in overlapping fashion. Stent balloon was removed. Overlap was post-dilated with the st ent balloon and the stent balloon was removed. A 3.0 x 12 mm Synergy drug-eluting stent was then ad vanced to the mid/proximal LAD and deployed at high pressure. Again, the overlap of the second and most proximal stent was post-dilated with stent balloon. The stent balloon was then removed. A 2.5 x 20 mm noncompliant balloon was then advanced to the distal LAD stent and used for post-dilation. A 3.25 x 20 mm noncompliant balloon was then used to post-dilate the second LAD stent as well as th e overlaps as well as the more proximal portion of the third LAD stent. Final angiograms were obtai talat showing good stent expansion apposition. There was brisk flow noted in the LAD stent, but remai talat MATHEW II/III type flow likely due to size mismatch between the stent and distal artery. Therefor e, Integrilin drip was started at this point. The patient denied any chest pain or shortness of kim ath. All wires and catheters removed. Intracoronary nitroglycerin was given. The patient did noti ce nausea and vomiting with the nitroglycerin. After was stopped patient denied any chest no n or further nausea. The patient given Zofran IV. All catheters and wires were removed. Hemostasi s was obtained with a TR band to the left wrist. ESTIMATED BLOOD LOSS: 100 mL. COMPLICATIONS: There were no complications. SPECIMENS OBTAINED: None. FINDINGS: HEMODYNAMICS. LVEDP is 15 mmHg. LV gram. EF 45% with severe hypokinesis of the mid to apical anterior wall. CORONARY ANATOMY: 1. Left main. Large vessel with mild disease, 10%. 2. Left anterior descending artery. This is a large sized vessel proximally. There is mild diseas e in the distal portion of the proximal LAD, 30% to 40%. There is a septal 1 artery, which is follo wed by a small size diagonal 1 artery. After this diagonal 1 artery, the LAD is completely occluded with MATHEW 0 flow. This appears to be at the proximal edge of two overlapping stents. The distal L AD fills weakly via left to left collaterals from the apical portion. 3. Left circumflex artery. This is a dominant artery. It is large in size. The proximal circumfl ex has mild diffuse disease, 30%. The mid to distal circumflex is without disease. There is an ave rage size left PDA artery, which is without disease. The OM2 branch is a large sized branch and has mild disease, 30% proximal portion, as well as 30% in the mid portion. There is a small superior b ranch with a proximal 60% lesion. The inferior branch is large and tortuous without significant dis ease. 4. Right coronary artery. This is a small nondominant branch. No significant disease. 5. Ramus intermedius branch. Average size long with a proximal 30% to 40% stenosis. PERCUTANEOUS CORONARY INTERVENTION LESION DESCRIPTION: 1. Mid LAD MILK PASTEURIZER status post PCI with drug-eluting stent x3. 2. Preprocedure stenosis 100%, postprocedure stenosis is 0%. 3. MATHEW 0 flow pre, MATHEW II to III flow post. CONCLUSIONS: 1. Single vessel coronary artery disease with MILK PASTEURIZER of the mid LAD, status post PCI with overall dexter ing drug-eluting stents x3. 2. Moderate decreased LV systolic function with new anterior wall motion abnormality. 3. Mildly elevated left ventricular filling pressures. RECOMMENDATIONS: 1. Aspirin 81 mg daily. 2. Given patient with multiple overlapping stents would switch him to Brilinta 90 mg p.o. b.i.d. 3. Integrilin drip overnight. 4. Continue statin. 5. Continue beta-raymundo as tolerated. 6. Continue nitrate if patient can tolerate. 7. Referral to cardiac rehab after discharge. Dictated By: ROLAN FRIAS/PRETTY Conf#: [id number] DID#: [id number]
--- NOTE | 2017-03-05 15:21 | RADRPT ---
Echocardiogram Report Patient Name: RANI THAPA Gender: Male Date: 1945 Study Date: 05-Mar-2017 Biomechanical Engineer: Bernard Desir ANGELITO Location: [facility] Ref. Physician: ROLAN SLAUGHTER Quality: Technically Difficult Study Procedures: Transthoracic echocardiogram with complete 2D, M-Mode, and doppler examination. Indications: NSTEMI. 2D/M Mode Doppler Measurement Value Normal Ranges Measurement Value Normal Ranges AoR Diam MM 3.3 cm [place] VTI 2.2 cm2 LA Dimen MM 3.6 cm AV Mean PG 9.0 mmHg LVIDd 2D 4.7 3.5 - 5.6 cm AV Peak Nahum 2.1 m/sec LVIDs 2D 3.2 2.1 - 4.1 cm AV Peak PG 17.0 mmHg LVPWd 2D 1.0 0.6 - 1.1 cm AV VTI 37.9 cm IVSd 2D 1.1 0.6 - 1.1 cm LVOT Mean PG 6.0 mmHg LVOT Diam 2.1 cm LVOT Peak Nahum 1.2 m/sec LVOT Peak PG 3.0 mmHg LVOT VTI 24.2 cm MV E Peak Nahum 7.1 m/sec MV E Peak PG 2.0 mmHg MV A Peak Nahum 1.0 m/sec MV A Peak PG 4.0 mmHg MV Decel Time 317 msec Findings Left Ventricle: Normal left ventricular systolic function. Normal left ventricular cavity size. Normal left ventricular wall thickness. Ejection fraction is visually estimated at 5560 %. Tissue Doppler/Mitral Doppler indices are consistent with impaired relaxation (Stage I diastolic dysfunction). These segments of the LV are hypokinetic apical septum. Right Ventricle: Normal right ventricular size. Normal right ventricular systolic function. Left Atrium: The left atrium is normal in size. Right Atrium: The right atrium is normal in size. Mitral Valve: Mitral valve leaflets appear mildly thickened. Mild mitral annular calcification. Trace mitral regurgitation. Aortic Valve: Aortic sclerosis without stenosis. Trace aortic valve regurgitation. Tricuspid Valve: Normal appearance of the tricuspid valve. Unable to obtain RVSP due to minimal presence of tricuspid regurgitation. Pulmonic Valve: Pulmonic valve not well visualized. Pericardium: Normal pericardium with no significant pericardial effusion. Aorta: Normal aortic root. IVC: Normal size and normal respiratory collapse consistent with normal right atrial pressure. Conclusions Technically difficult study with limited visualization of apical sanchez. Normal left ventricular systolic function. Normal left ventricular cavity size. Normal left ventricular wall thickness. Ejection fraction is visually estimated at 55-60 %. Tissue Doppler/Mitral Doppler indices are consistent with impaired relaxation (Stage I diastolic dysfunction). Possible hypokinesis of LV apical septum, though poorly visualized. Normal right ventricular size. Normal right ventricular systolic function. The left atrium is normal in size. Aortic sclerosis without stenosis. Trace aortic valve regurgitation. Normal appearance of the tricuspid valve. Unable to obtain RVSP due to minimal presence of tricuspid regurgitation. Normal pericardium with no significant pericardial effusion. Normal aortic root. Normal size and normal respiratory collapse consistent with normal right atrial pressure. No Vegetation, masses, or thrombi seen. Electronically Signed By: Rolan Slaughter 05-Mar-2017 15:21:14 -0800 Patient Name: RANI THAPA Study Date: 05-Mar-2017 [id number]
--- NOTE | 2017-03-05 15:21 | RADRPT ---
Echocardiogram Report Patient Name: RANI THAPA Gender: Male Date: 1945 Study Date: 05-Mar-2017 Wiring Mechanic: Bernard Desir ANGELITO Location: [facility] Ref. Physician: ROLAN SLAUGHTER Quality: Technically Difficult Study Procedures: Transthoracic echocardiogram with complete 2D, M-Mode, and doppler examination. Indications: NSTEMI. 2D/M Mode Doppler Measurement Value Normal Ranges Measurement Value Normal Ranges AoR Diam MM 3.3 cm [place] VTI 2.2 cm2 LA Dimen MM 3.6 cm AV Mean PG 9.0 mmHg LVIDd 2D 4.7 3.5 - 5.6 cm AV Peak Nahum 2.1 m/sec LVIDs 2D 3.2 2.1 - 4.1 cm AV Peak PG 17.0 mmHg LVPWd 2D 1.0 0.6 - 1.1 cm AV VTI 37.9 cm IVSd 2D 1.1 0.6 - 1.1 cm LVOT Mean PG 6.0 mmHg LVOT Diam 2.1 cm LVOT Peak Nahum 1.2 m/sec LVOT Peak PG 3.0 mmHg LVOT VTI 24.2 cm MV E Peak Nahum 7.1 m/sec MV E Peak PG 2.0 mmHg MV A Peak Nahum 1.0 m/sec MV A Peak PG 4.0 mmHg MV Decel Time 317 msec Findings Left Ventricle: Normal left ventricular systolic function. Normal left ventricular cavity size. Normal left ventricular wall thickness. Ejection fraction is visually estimated at 5560 %. Tissue Doppler/Mitral Doppler indices are consistent with impaired relaxation (Stage I diastolic dysfunction). These segments of the LV are hypokinetic apical septum. Right Ventricle: Normal right ventricular size. Normal right ventricular systolic function. Left Atrium: The left atrium is normal in size. Right Atrium: The right atrium is normal in size. Mitral Valve: Mitral valve leaflets appear mildly thickened. Mild mitral annular calcification. Trace mitral regurgitation. Aortic Valve: Aortic sclerosis without stenosis. Trace aortic valve regurgitation. Tricuspid Valve: Normal appearance of the tricuspid valve. Unable to obtain RVSP due to minimal presence of tricuspid regurgitation. Pulmonic Valve: Pulmonic valve not well visualized. Pericardium: Normal pericardium with no significant pericardial effusion. Aorta: Normal aortic root. IVC: Normal size and normal respiratory collapse consistent with normal right atrial pressure. Conclusions Technically difficult study with limited visualization of apical sancehz. Normal left ventricular systolic function. Normal left ventricular cavity size. Normal left ventricular wall thickness. Ejection fraction is visually estimated at 55-60 %. Tissue Doppler/Mitral Doppler indices are consistent with impaired relaxation (Stage I diastolic dysfunction). Possible hypokinesis of LV apical septum, though poorly visualized. Normal right ventricular size. Normal right ventricular systolic function. The left atrium is normal in size. Aortic sclerosis without stenosis. Trace aortic valve regurgitation. Normal appearance of the tricuspid valve. Unable to obtain RVSP due to minimal presence of tricuspid regurgitation. Normal pericardium with no significant pericardial effusion. Normal aortic root. Normal size and normal respiratory collapse consistent with normal right atrial pressure. No Vegetation, masses, or thrombi seen. Electronically Signed By: Rolan Slaughter 05-Mar-2017 15:21:14 -0800 Patient Name: RANI THAPA Study Date: 05-Mar-2017 [id number]
== END 2017-03-05 19:02 | disposition home or self-care (01) | DRG 247 ==
LOC: CCL 11:27 → ICU 17:24
PROVIDERS: ADMIT Internal Medicine Interventional Cardiology; ATTEND Internal Medicine Interventional Cardiology
PROC: B211YZZ Fluoroscopy of Multiple Coronary Arteries using Other Contrast (ICD-10-PCS; 2017-03-04)
PROC: 027036Z Dilation of Coronary Artery, One Artery with Three Drug-eluting Intraluminal Devices, Percutaneous Approach (ICD-10-PCS; principal; 2017-03-04 13:30)
PROC: 4A023N7 Measurement of Cardiac Sampling and Pressure, Left Heart, Percutaneous Approach (ICD-10-PCS; 2017-03-04 13:30)
DX: I21.4 Non-ST elevation (NSTEMI) myocardial infarction (principal); I25.82 Chronic total occlusion of coronary artery; I10 Essential (primary) hypertension; E78.5 Hyperlipidemia, unspecified; E66.9 Obesity, unspecified; Z68.33 Body mass index [BMI] 33.0-33.9, adult; I25.2 Old myocardial infarction; Z95.5 Presence of coronary angioplasty implant and graft; Z85.72 Personal history of non-Hodgkin lymphomas; Z92.21 Personal history of antineoplastic chemotherapy; Z87.891 Personal history of nicotine dependence; I25.10 Atherosclerotic heart disease of native coronary artery without angina pectoris
CPT/HCPCS: 80048; 80061; 85025; 85610; 87081; 93005; 93306; 93458; C1725; C1874; C1887; C9600; J1327; J1644; J2250; J2405; J3010; J7040; Q9967

== ENCOUNTER 2017-03-13 12:17 | Emergency (ER) | payer MEDICARE, OTHER ==
[~2017-03-13] VITALS: Ht 160 cm; Wt 86.0 kg
[~2017-03-13 12:17] MED LIST: ASPI-664 PO; ATOR80TA75 PO; FAMO20TA18 PO; METO-335 PO; TICA90TA PO; ZOLP5TAB7 PO
[2017-03-13 12:20] VITALS: Ht 160 cm; Wt 86.0 kg
[2017-03-13] MEDS ORDERED: ONDANSETRON (ODT) 4 MG TAB ODT STA (12:37)
[2017-03-13] MEDS ORDERED: HYDROCODONE/APAP (10/325) TAB PO ONE (13:00)
--- NOTE | 2017-03-13 13:56 | RADRPT ---
PROCEDURE: Left upper extremity venous ultrasound CLINICAL INDICATION: Left arm pain and swelling. Deep venous thrombosis. TECHNIQUE: Denis scale, color doppler, spectral doppler ultrasound imaging of the venous system of the left upper extremity. Augmentation maneuvers were utilized. COMPARISON: No prior studies are available for comparison. FINDINGS: LEFT: Internal jugular vein: Patent. Subclavian vein: Patent. Axillary vein: Patent. Brachial vein: Patent. Basilic vein: Patent. Cephalic vein: Patent. Radial vein: Patent. Ulnar vein: Patent. IMPRESSION: No evidence of a deep vein thrombosis involving the left upper extremity. RPTAT: AADD .Raymond Yan MD, MD Date Time Electronically viewed and signed by .Raymond Yan MD, MD on 03/13/2017 13:55 .B/
[2017-03-13] MEDS ORDERED: DOCU-144 PO (14:04)
[2017-03-13] MEDS ORDERED: HYDR-902 PO (14:04)
--- NOTE | 2017-03-13 14:09 | ERD ---
ER Documentation Chief Complaint Chief Complaint REFERRED HERE DR. MEEK FOR RULE OUT DVT OF LEFT ARM S/P ANGIOGRAM HPI Patient is a 71-year-old male with coronary disease and hypertension who presents with left arm pain and swelling. The patient was sent by Dr. Meek his primary doctor as he has had left-sided arm pain and the doctor wanted to rule out DVT. Last week on March 04 he had an angiogram done through his left arm and since then he has had pain which is getting worse. The patient is right-handed. He has had no treatment for pain as of yet. He is on Brilinta. ROS All systems reviewed and are negative except as per history of present illness. Medications Home Meds Active Scripts Docusate Sodium* (Colace*) 100 Mg Capsule, 100 MG PO TID, #30 CAP Prov:LIZ EVANS MD 03/13/17 Hydrocodone/Acetaminophen (Manti 10-325 Tablet) 1 Each Tablet, 1 TAB PO Q6H Y for PAIN, #7 TAB Prov:LIZ EVANS MD 03/13/17 Ticagrelor* (Brilinta*) 90 Mg Tablet, 90 MG PO BID, #120 TAB Prov:SANTO HUFFMAN 03/05/17 Metoprolol Succinate* (Toprol XL*) 25 Mg Tab.sr.24h, 25 MG PO DAILY, #30 hold for heart rate less than 50 Prov:SANTO HUFFMAN 03/05/17 Atorvastatin* (Atorvastatin*) 80 Mg Tablet, 80 MG PO DAILY@21, #90 TAB Prov:SANTO HUFFMAN 03/05/17 Aspirin* (Aspirin* EC) 81 Mg Tablet.dr, 81 MG PO DAILY, #90 Prov:SANTO HUFFMAN 03/05/17 Reported Medications Zolpidem Tartrate* (Zolpidem Tartrate*) 5 Mg Tablet, 5 MG PO QHS Y for INSOMNIA , #30 TAB 03/04/17 Famotidine* (Famotidine*) 20 Mg Tablet, 20 MG PO DAILY, #30 TAB 03/04/17 Allergies Allergies: Coded Allergies: Penicillins (Verified Allergy, Unknown, 03/13/17) PMhx/Soc History of Surgery: Yes (cholecystectomy) Anesthesia Reaction: No Hx Neurological Disorder: No Hx Respiratory Disorders: No Hx Cardiac Disorders: Yes (cad) Hx Psychiatric Problems: No Hx Miscellaneous Medical Probl: No Hx Alcohol Use: Yes Hx Tobacco Use: No Smoking Status: Never smoker FmHx Family History: coronary disease Physical Exam Vitals Vital Signs Date Time Temp Pulse Resp B/P Pulse Ox O2 Delivery O2 Flow Rate FiO2 03/13/17 12:20 97.4 82 20 162/91 97 Physical Exam Const: No acute distress Head: Atraumatic Eyes: Normal Conjunctiva ENT: Normal External Ears, Nose and Mouth. Neck: Full range of motion..~ No meningismus. Resp: Clear to auscultation bilaterally Cardio: Regular rate and rhythm, no murmurs Abd: Soft, non tender, non distended. Normal bowel sounds Skin: Bruising of the left arm Back: No midline or flank tenderness Ext: No obvious swelling compared to left arm to the right, pulses to the left upper extremity Neur: Awake and alert Psych: Normal Mood and Affect Results 24 hrs Current Medications Medications (Trade) Dose Ordered Sig/Duke Route PRN Reason Start Time Stop Time Status Last Admin Dose Admin Acetaminophen/ Hydrocodone Bitart (Manti (10/325)) 1 tab ONCE ONCE PO 03/13/17 13:00 03/13/17 13:01 DC 03/13/17 12:56 Ondansetron HCl (Zofran Odt) 4 mg ONCE STAT ODT 03/13/17 12:37 03/13/17 12:38 DC 03/13/17 12:55 Procedures/MDM Ultrasound of the left upper extremity shows no sign of DVT per radiology. Patient is a 71-year-old male who presents of left arm pain after recent angiogram. The patient had an ultrasound which shows no sign of DVT. Pulses were strong in the left upper extremity. At this point I doubt DVT or arterial injury. The patient likely has pain for bruising and inflammation of the arm post catheterization. The patient will be given Manti for pain will be given a short prescription. He will need to follow back with Dr. Meek his primary doctor. He can return for any worsening symptoms. Departure Diagnosis: Primary Impression: Pain of left arm Condition: Fair Patient Instructions: Pain Management Referrals: KIMBERLY MANCILLA (PCP) Additional Instructions: Call your primary care doctor TOMORROW for an appointment during the next 1-2 days.See the doctor sooner or return here if your condition worsens before your appointment time. LIZ EVANS MD Mar 13, 2017 14:09
[2017-03-13 14:13] VITALS: BP 145/85; PULSE 78; RESP 21; TEMP 98
== END 2017-03-13 14:43 | disposition home or self-care (01) ==
LOC: E/R 12:17
DX: M79.602 Pain in left arm (principal); I10 Essential (primary) hypertension; I25.10 Atherosclerotic heart disease of native coronary artery without angina pectoris; Z79.82 Long term (current) use of aspirin
CPT/HCPCS: 93971; 99283

== ENCOUNTER → 2017-03-14 | Outpatient (CLI) | payer MEDICARE, OTHER ==
[~2017-03-14] MED LIST changes: +DOCU-144 PO; +HYDR-902 PO
== END | disposition home or self-care (01) ==
LOC: CRE 12:19
PROVIDERS: ATTEND Nuclear Medicine Nuclear Cardiology
DX: I21.4 Non-ST elevation (NSTEMI) myocardial infarction (principal); I25.10 Atherosclerotic heart disease of native coronary artery without angina pectoris
CPT/HCPCS: 93797